=== PATIENT | female | born 1960 | race Caucasian/White ===

== ENCOUNTER 2021-12-10 08:42 | Emergency (ER) | payer SELFPAY ==
[~2021-12-10] VITALS: Ht 149.9 cm; Wt 91.7 kg
[~2021-12-10 08:42] MED LIST: FLEXERIL 1010 MG/TAB PO; LEVAQUIN 5500 MG/TA1 PO; MUCINEX DM 30 M1 TE1 PO; NO HOME MEDICATIONS; PREDNISONE20 MG PO; VENTOLIN0.09 MG IH
[2021-12-10 08:48] VITALS: BP 159/77; TEMP 98.3
[2021-12-10] MEDS ORDERED: FLEXERIL 1010 MG/TAB PO (09:07)
[2021-12-10 09:25] VITALS: PULSE 81
== END 2021-12-10 09:27 | disposition home or self-care (01) ==
LOC: COL.ER 08:42
DX: M54.50 Low back pain, unspecified (principal); X50.0XXA Overexertion from strenuous movement or load, initial encounter; Y92.512 Supermarket, store or market as the place of occurrence of the external cause; Y99.0 Civilian activity done for income or pay